=== PATIENT | female | born 1945 ===

== ENCOUNTER 2021-04-29 07:47 | Outpatient (CLI) | payer OTHER | END 2021-04-29 07:48 | disposition home or self-care (01) | LOC: NUCLEAR 07:47 | PROVIDERS: ATTEND Internal Medicine Cardiovascular Disease | DX: R07.89 Other chest pain (principal); I50.1 Left ventricular failure, unspecified | CPT/HCPCS: 78452; 93017; A9500; J0153 ==

== ENCOUNTER 2025-02-24 07:14 | Outpatient (CLI) | payer OTHER | END 2025-02-25 09:00 | disposition home or self-care (01) | LOC: NUCLEAR 07:14 | PROVIDERS: ATTEND Internal Medicine | DX: I20.9 Angina pectoris, unspecified (principal) | CPT/HCPCS: 78452; 93017; A9500; J0153 ==